=== PATIENT | female | born 1975 | race Caucasian/White ===

== ENCOUNTER 2020-04-24 06:06 | Day surgery (SDC) | payer OTHER ==
[2020-04-22 16:10] VITALS: BMI 26.8
[2020-04-24] MEDS ORDERED: SUCCINYLCHOLINE CHLORIDE 200 MG/10 ML SYRINGE ONE (07:11)
[2020-04-24] MEDS ORDERED: PROPOFOL 20 ML ONE ×2 (07:11)
[2020-04-24] MEDS ORDERED: MIDAZOLAM HCL 2 MG/2 ML SINGLE DOSE VIAL ONE (07:11)
[2020-04-24] MEDS ORDERED: ROPIVACAINE HCL 0.5% 30ML VIAL ONE (07:31)
[2020-04-24] MEDS ORDERED: LIDOCAINE HCL 2% (20ML MULTI-DOSE VIAL) ONE (07:31)
[2020-04-24] MEDS ORDERED: ceFAZolin SODIUM 1 GM VIAL IVPB ONE (07:45)
--- NOTE | 2020-04-24 09:52 | OP ---
DATE OF OPERATION: PREOPERATIVE DIAGNOSES: 1. Right carpal tunnel syndrome. 2. Right triangular fibrocartilage complex tear. POSTOPERATIVE DIAGNOSES: 1. Right carpal tunnel syndrome. 2. Right triangular fibrocartilage complex tear. OPERATIVE PROCEDURE: 1. Right carpal tunnel release. 2. Right wrist operative arthroscopy with triangular fibrocartilage complex debridement. SURGEON: Manny Weir MD HIGHWAY MAINTAINER: LESLEY Bach ANESTHESIA: General. COMPLICATIONS: None. ESTIMATED BLOOD LOSS: Minimal. INDICATION FOR PROCEDURE: A 44-year-old female with the above finding indicated for operative treatment. Risks, benefits, alternatives were discussed with patient at length. Proper informed consent was obtained. PROCEDURE: After proper identification of the patient and correct operative site patient brought to the operating room and placed supine on the operating table, all bony prominences well padded. General anesthesia was given. Right upper extremity was prepped and draped in the usual sterile fashion. Well-padded tourniquet was placed over the sterile prep. Examination under anesthesia showed a stable distal radioulnar joint. Right upper extremity was placed into the [facility] arthroscopy tower with 10 pounds of inline traction and all points of contact well padded. Standard arthroscopy was done through 3-4 and portals. Both portals were made with skin incision only and blunt dissection down to the joint capsule. A 2.7-mm gravity inflow arthroscope was used. Radiocarpal joint was observed and found to be free of articular defects. Scapholunate and lunotriquetral ligaments were intact. Volar radiocarpal ligaments were intact. Dorsal intercarpal ligaments were intact. There was no synovitis in the radial aspect on the wrist. On the ulnar aspect of the wrist there was a partial tear of the ulnar attachment of the TFCC with some fraying of the dorsal radioulnar ligament. The radioulnar ligament, however, was intact and trampoline effect remained. The partial tear was debrided with mechanical shaver. Moderate synovitis was also visualized around the tear and it was debrided. A small amount of radial-sided partial fraying was also noted and debrided. There was no full-thickness tear of the articular disk or the radial attachment. Volar radioulnar ligament was also intact. Arthroscope was then removed from the wrist and incision was repaired with 5-0 fast-absorbing plain gut suture. A 2nd incision was made volarly over the palm. Incision was taken sharply through the skin, with blunt and sharp dissection through subcutaneous tissues. Palmar fascia was divided longitudinally. Transverse carpal ligament was divided longitudinally along with the distal 4 cm of antebrachial fascia under direct visualization with loupe magnification. This provided complete release of the median nerve at the wrist. Wound was repaired with 5-0 fast-absorbing plain gut suture. Sterile dressings were applied. Patient was brought to the recovery room in stable condition. She tolerated the procedure well. Marcel Broussard was integral throughout this procedure. The procedure could not have been performed without a skilled operative dental assistant teacher during the arthroscopy portion of the case where he was necessary for positioning the wrist in order to achieve adequate debridement. This could not have been performed without a skilled operative dental assistant teacher. MANNY WEIR M.D. [id number]
[2020-04-24] MEDS ORDERED: LACTATED RINGERS SOLUTION 1,000 ML IV SCH (10:00)
[2020-04-24] MEDS ORDERED: oxyCODONE HCL 5 MG TABLET PO PRN (10:00)
[2020-04-24] MEDS ORDERED: ONDANSETRON 4 MG/2 ML VIAL IVPUSH PRN (10:00)
[2020-04-24 15:06] VITALS: TEMP 98
[2020-04-24 15:38] VITALS: BP 112/68; PULSE 57
== END 2020-04-24 10:25 | disposition home or self-care (01) ==
LOC: FASU 06:06
PROVIDERS: ATTEND Orthopaedic Surgery Hand Surgery
PROC: 01N50ZZ Release Median Nerve, Open Approach (ICD-10-PCS; principal; 2020-04-24 07:30)
PROC: 0RBN4ZZ Excision of Right Wrist Joint, Percutaneous Endoscopic Approach (ICD-10-PCS; 2020-04-24 07:30)
DX: G56.01 Carpal tunnel syndrome, right upper limb (principal); M24.131 Other articular cartilage disorders, right wrist
CPT/HCPCS: 81025; 94760